=== PATIENT | female | born 1960 ===

== ENCOUNTER 2018-01-14 06:33 | Day surgery (SDC) | payer OTHER ==
[2018-01-14] MEDS ORDERED: Propofol 10 mg/ml Inj (20 ML) ONE (08:35)
[2018-01-14] MEDS ORDERED: Lactated Ringer's 1,000 ML IV ONE (08:37)
[2018-01-14] MEDS ORDERED: Pantoprazole 40 mg EC Tab PO STA (08:38)
--- NOTE | 2018-01-14 08:38 | CP.SDSHP ---
Same Day Surgery H & P - History Proposed Procedure: EGD Pre-Op Diagnosis: B12 deficiency/Pervicious anemia. r/o atrophic gastritis - Previous Medical/Surgical History Misc: Anemia Previous Surgical History: - Allergies Allergies: Allergies No Known Allergies Allergy (Verified 01/12/18 11:05) - Physical Exam Vital Signs: Vital Signs 01/14/18 06:52 Temperature 96.6 F L Pulse Rate 72 Respiratory 19 Rate Blood Pressure 181/86 H O2 Sat by Pulse 99 Oximetry Mental Status: Alert & Oriented x3 Heart: WNL Lungs: WNL GI: WNL - Impression Impression: Pernicious anemia/B12 deficiency r/o Atrophic gastritis Pt. Evaluated Today:Candidate for Anesthesia & Procedure: Yes - Date & Time Date: 01/14/18 Time: 08:38 Short Stay Discharge - Short Stay Discharge Admitting Diagnosis/Reason for Visit: RIGHT LOWER QUADRANT PAIN Disposition: HOME/ ROUTINE
[2018-01-14] MEDS ORDERED: Lactated Ringer's 500 ML IV SCH (08:45)
[2018-01-14 10:15] VITALS: TEMP 97
[2018-01-14 10:16] VITALS: RESP 18; O2SAT 99
[2018-01-14 10:22] VITALS: BP 139/80; PULSE 82
== END 2018-01-14 10:15 | disposition home or self-care (01) ==
LOC: C.ENDO 06:33
PROVIDERS: ATTEND Internal Medicine Gastroenterology
DX: D51.0 Vitamin B12 deficiency anemia due to intrinsic factor deficiency (principal); R10.31 Right lower quadrant pain; K21.9 Gastro-esophageal reflux disease without esophagitis; K29.70 Gastritis, unspecified, without bleeding
CPT/HCPCS: 43239; 88305; J2704; J7120

== ENCOUNTER 2018-02-11 07:17 | Day surgery (SDC) | payer OTHER ==
[2018-02-11] MEDS ORDERED: Lactated Ringer's 500 ML IV SCH (09:00)
[2018-02-11] MEDS ORDERED: Propofol 10 mg/ml Inj (20 ML) ONE (09:23)
--- NOTE | 2018-02-11 09:24 | CP.SDSHP ---
Same Day Surgery H & P - History Proposed Procedure: colonoscopy Pre-Op Diagnosis: screening for colon neoplasia - Previous Medical/Surgical History Endocrine/Metabolic: Other (Pernicious anemia/atrophic gastritis-2018) Previous Surgical History: C-sectionx1 - Allergies Allergies: Allergies No Known Allergies Allergy (Verified 01/12/18 11:05) - Physical Exam Vital Signs: Vital Signs 02/11/18 07:34 Temperature 98 F Pulse Rate 68 Respiratory 18 Rate Blood Pressure 132/71 O2 Sat by Pulse 99 Oximetry Mental Status: Alert & Oriented x3 Neuro: WNL Heart: WNL Lungs: WNL GI: WNL - Impression Impression: screening for colon cancer Pt. Evaluated Today:Candidate for Anesthesia & Procedure: Yes - Date & Time Date: 02/11/18 Time: 09:24 Short Stay Discharge - Short Stay Discharge Admitting Diagnosis/Reason for Visit: SCREENING Disposition: HOME/ ROUTINE
[2018-02-11] MEDS ORDERED: Lactated Ringer's 500 ML IV ONE ×2 (09:25)
[2018-02-11 09:31] VITALS: O2SAT 100
[2018-02-11 10:25] VITALS: RESP 14
[2018-02-11 10:59] VITALS: BP 123/73; PULSE 65; TEMP 97.4
== END 2018-02-11 10:55 | disposition home or self-care (01) ==
LOC: C.ENDO 07:17
PROVIDERS: ATTEND Internal Medicine Gastroenterology
DX: Z12.11 Encounter for screening for malignant neoplasm of colon (principal); K64.8 Other hemorrhoids
CPT/HCPCS: 45378; J2704; J7120